=== PATIENT | female | born 1965 | race African-American/Black ===

== ENCOUNTER 2022-02-08 10:34 | Emergency (ER) | payer MEDICAID ==
[~2022-02-08] VITALS: Ht 165.1 cm; Wt 73.5 kg
[2022-02-08] MEDS ORDERED: traMADol HCL 50 MG TAB PO ONE (12:15)
[2022-02-08 12:50] VITALS: BP 115/71
[2022-02-08] MEDS ORDERED: IBUP400T22 PO (13:15)
== END 2022-02-08 13:47 | disposition home or self-care (01) ==
LOC: ER 10:34
DX: S46.912A Strain of unspecified muscle, fascia and tendon at shoulder and upper arm level, left arm, initial encounter (principal); I10 Essential (primary) hypertension; Z90.710 Acquired absence of both cervix and uterus; X58.XXXA Exposure to other specified factors, initial encounter; Y93.89 Activity, other specified; Y92.89 Other specified places as the place of occurrence of the external cause; Y99.8 Other external cause status
CPT/HCPCS: 73030; 93005